=== PATIENT | female | born 1970 | race African-American/Black ===

== ENCOUNTER 2021-12-26 15:12 | Emergency (ER) | payer MEDICAID, OTHER ==
[~2021-12-26] VITALS: Ht 157.5 cm; Wt 87.0 kg
[~2021-12-26 15:12] MED LIST: IRON45TA6 PO; KEPP500 PO; PREN1TAB49 PO
[2021-12-26 17:32] VITALS: BP 147/87
== END 2021-12-26 19:07 | disposition home or self-care (01) ==
LOC: ER 15:12
DX: S40.862A Insect bite (nonvenomous) of left upper arm, initial encounter (principal); T14.8XXA Other injury of unspecified body region, initial encounter; W57.XXXA Bitten or stung by nonvenomous insect and other nonvenomous arthropods, initial encounter; Y93.89 Activity, other specified; Y92.89 Other specified places as the place of occurrence of the external cause; Y99.8 Other external cause status
CPT/HCPCS: 99281